=== PATIENT | male | born 1935 | race Caucasian/White ===

== ENCOUNTER 2021-03-12 14:20 | Inpatient (IN) | payer MEDICARE ==
[2021-03-12] MEDS ORDERED: [UNRECOGNIZED DRUG - OTHER] PO (14:35)
[2021-03-12] MEDS ORDERED: VITAMIN C500 M8 PO (14:37)
[2021-03-12] MEDS ORDERED: ASPIRIN ADULT L81 M1 PO (14:38)
[2021-03-12] MEDS ORDERED: ATIVAN1 MG PO (14:39)
[2021-03-12] MEDS ORDERED: Sinemet Cr 25-11 TAB PO (14:42)
[2021-03-12] MEDS ORDERED: STOOL SOFTENER100 M3 PO (14:45)
[2021-03-12] MEDS ORDERED: DIVALPROEX SOD500 M1 PO (14:50)
[2021-03-12] MEDS ORDERED: Depakote500 MG PO (14:52)
[2021-03-12] MEDS ORDERED: EXEL13.31 TD (14:56)
[2021-03-12] MEDS ORDERED: NATURE'S BLEND F1 MG PO (14:58)
[2021-03-12] MEDS ORDERED: FLUDROCORTISON0.1 MG PO (14:58)
[2021-03-12] MEDS ORDERED: LEVOTHYROXINE25 MCG PO (15:00)
[2021-03-12] MEDS ORDERED: METOPROLOL SUCC25 M2 PO (15:01)
[2021-03-12] MEDS ORDERED: POTASSIUM CHLO20 MEQ PO (15:03)
[2021-03-12] MEDS ORDERED: REMERON15 M2 PO (15:04)
[2021-03-12] MEDS ORDERED: VISTARIL25 MG PO (15:05)
[2021-03-12] MEDS ORDERED: WHITE PETROLATUM5 GM T (15:07)
[2021-03-12] MEDS ORDERED: ZINC SULFATE 1566 MG PO (15:08)
[2021-03-12 18:04] VITALS: BP 118/78
[2021-03-12 20:00] VITALS: BP 134/86
[2021-03-12 21:10] LABS: BILIRUBIN Negative (Negative); BLOOD Negative (Negative); CLARITY Cloudy (Clear); COLOR Yellow (Yellow); GLUCOSE Negative (Negative); KETONE Negative (Negative); LEUKO ESTERASE 3+ (Negative); NITRITE Positive (Negative); PH 5.5 (4.5-8.0); SPECIFIC GRAVITY 1.015 (1.001-1.030); UROBILINOGEN 0.2 E.U./dl (0.0-1.0)
[2021-03-12 21:15] LABS: BACTERIA 4+; EPITHELIAL CELLS 0-2; MUCOUS TRACE; RBC 0-2 rbc/hpf (0-2); WBC TNTC wbc/hpf (0-5)
[2021-03-13 06:32] LABS: BASO # 0.1 10*3/uL (0.0-0.1); BASO % 0.9 % (0.0-1.0); EOS # 0.2 10*3/uL (0.0-0.4); EOS % 1.3 % (1.0-4.0); LYMPH % 23.9 % (27.0-41.0); MEAN CELL VOLUME 92.4 fl (80.0-94.0); MEAN CORPUSCULAR HGB 28.4 pg (27.0-31.0); MEAN CORPUSCULAR HGB CONC 30.8 g/dl (33.0-37.0); MONO # 0.9 10*3/uL (0.1-1.0); MONO % 7.1 % (3.0-9.0); NEUT # 8.3 10*3/uL (2.3-7.9); NEUT % 66.4 % (47.0-73.0); PLATELET COUNT AUTOMATED 288 10*3/uL (130-400); RED BLOOD COUNT 4.22 10*6/uL (4.50-5.90); RED CELL DISTRI WIDTH 15.8 % (0-14.5); WHITE BLOOD COUNT 12.4 10*3/uL (4.8-10.8)
[2021-03-13 06:49] LABS: ALBUMIN 2.9 gm/dl (3.1-4.5); BUN 17 mg/dl (7-24); CHLORIDE 108 mmol/L (98-107); CHOLESTEROL 143 mg/dL (<200); CREATININE 0.86 mg/dL (0.70-1.30); POTASSIUM 4.2 mmol/L (3.5-5.1); SGOT/AST 20 IU/L (3-35); SGPT/ALT 30 U/L (12-78); SODIUM 136 mmol/L (136-145); TOTAL PROTEIN 6.7 gm/dL (6.4-8.2); TRIGLYCERIDES 89 mg/dl (<150)
[2021-03-13 06:58] LABS: ALKALINE PHOSPHATASE 70 U/L (45-117); LDL CHOLESTEROL 87 mg/dL (9-159)
[2021-03-13 07:15] VITALS: BP 136/62
[2021-03-13 07:58] LABS: VITAMIN D, 25-HYDROXY 29.8 ng/mL (30-100)
[2021-03-13] MEDS ORDERED: SINEMET 25-1001 EACH PO (15:32)
[2021-03-13 19:47] VITALS: BP 136/62
[2021-03-14 07:56] VITALS: BP 130/60
[2021-03-14 20:00] VITALS: BP 118/68
[2021-03-15 07:57] VITALS: BP 116/68
[2021-03-15 20:00] VITALS: BP 131/59
[2021-03-16 07:17] VITALS: BP 107/69; BP 112/76
[2021-03-16 20:00] VITALS: BP 110/71
[2021-03-17 07:46] VITALS: BP 143/64
[2021-03-17 20:00] VITALS: BP 121/64
[2021-03-18 07:25] VITALS: BP 113/51
[2021-03-18 20:00] VITALS: BP 121/56
[2021-03-19 07:30] VITALS: BP 108/70
[2021-03-19 12:14] LABS: ALBUMIN 2.4 gm/dl (3.1-4.5); ALKALINE PHOSPHATASE 67 U/L (45-117); BUN 14 mg/dl (7-24); CHLORIDE 106 mmol/L (98-107); CREATININE 0.64 mg/dL (0.70-1.30); POTASSIUM 3.6 mmol/L (3.5-5.1); SGOT/AST 17 IU/L (3-35); SGPT/ALT 12 U/L (12-78); SODIUM 139 mmol/L (136-145); TOTAL PROTEIN 5.7 gm/dL (6.4-8.2)
[2021-03-19 20:27] VITALS: BP 126/84
[2021-03-20 08:00] VITALS: BP 129/67
[2021-03-20 19:39] VITALS: BP 139/64
[2021-03-21 07:14] VITALS: BP 131/48
[2021-03-21 20:00] VITALS: BP 110/64
[2021-03-22 07:39] VITALS: BP 108/62
[2021-03-22 19:51] VITALS: BP 122/62
[2021-03-23 07:45] VITALS: BP 153/67
[2021-03-23 20:00] VITALS: BP 114/50
[2021-03-24 07:22] VITALS: BP 134/69
[2021-03-24 19:43] VITALS: BP 127/56
[2021-03-25 07:13] VITALS: BP 150/62
[2021-03-25 13:08] LABS: BASO # 0.1 10*3/uL (0.0-0.1); BASO % 0.8 % (0.0-1.0); EOS # 0.4 10*3/uL (0.0-0.4); HEMATOCRIT 31.7 % (42.0-52.0); LYMPH # 1.9 10*3/uL (1.3-4.4); MEAN CELL VOLUME 95.2 fl (80.0-94.0); MEAN CORPUSCULAR HGB 28.8 pg (27.0-31.0); MEAN CORPUSCULAR HGB CONC 30.3 g/dl (33.0-37.0); MONO # 0.6 10*3/uL (0.1-1.0); MONO % 6.4 % (3.0-9.0); NEUT # 6.5 10*3/uL (2.3-7.9); NEUT % 68.4 % (47.0-73.0); PLATELET COUNT AUTOMATED 271 10*3/uL (130-400); RED BLOOD COUNT 3.33 10*6/uL (4.50-5.90); RED CELL DISTRI WIDTH 16.2 % (0-14.5); WHITE BLOOD COUNT 9.6 10*3/uL (4.8-10.8)
[2021-03-25 13:20] LABS: BUN 12 mg/dl (7-24); CHLORIDE 108 mmol/L (98-107); CREATININE 0.72 mg/dL (0.70-1.30); POTASSIUM 3.9 mmol/L (3.5-5.1); SODIUM 143 mmol/L (136-145)
[2021-03-26 06:45] LABS: BUN 11 mg/dl (7-24); CHLORIDE 109 mmol/L (98-107); CREATININE 0.55 mg/dL (0.70-1.30); SODIUM 142 mmol/L (136-145)
[2021-03-26 08:00] VITALS: BP 142/60
[2021-03-26] MEDS ORDERED: VITAMIN D3125 MC1 PO (09:52)
[2021-03-26] MEDS ORDERED: B121000 MCG/1 IM (10:09)
[2021-03-26] MEDS ORDERED: MEMANTINE HCL10 MG PO (10:09)
[2021-03-26] MEDS ORDERED: QUETIAPINE FUM100 M3 PO (10:09)
[2021-03-26] MEDS ORDERED: Lidoderm 5% Patch T (10:09)
[2021-03-26] MEDS ORDERED: RIVASTIGMINE1 EAC2 T (10:09)
[2021-03-26] MEDS ORDERED: QUETIAPINE FUMA25 MG PO (10:09)
[2021-03-26] MEDS ORDERED: ROZEREM8 MG PO (10:09)
[2021-03-26] MEDS ORDERED: DULOXETINE HCL60 MG PO (10:09)
== END 2021-03-26 10:20 | DRG 885 ==
LOC: 3N 14:20
PROVIDERS: Internal Medicine; Social Worker Clinical; Student in an Organized Health Care Education/Training Program; ADMIT Psychiatry & Neurology Psychiatry; ATTEND Psychiatry & Neurology Psychiatry
DX: F33.3 Major depressive disorder, recurrent, severe with psychotic symptoms (principal); F63.81 Intermittent explosive disorder; N18.9 Chronic kidney disease, unspecified; E27.40 Unspecified adrenocortical insufficiency; C18.9 Malignant neoplasm of colon, unspecified; G45.9 Transient cerebral ischemic attack, unspecified; E44.0 Moderate protein-calorie malnutrition; T83.511A Infection and inflammatory reaction due to indwelling urethral catheter, initial encounter; G30.9 Alzheimer's disease, unspecified; D64.9 Anemia, unspecified; I50.9 Heart failure, unspecified; R33.9 Retention of urine, unspecified; E03.9 Hypothyroidism, unspecified; K21.9 Gastro-esophageal reflux disease without esophagitis; I95.1 Orthostatic hypotension; M47.9 Spondylosis, unspecified; Z20.822 Contact with and (suspected) exposure to COVID-19; G20 Parkinson's disease; J44.9 Chronic obstructive pulmonary disease, unspecified; I25.10 Atherosclerotic heart disease of native coronary artery without angina pectoris; N40.0 Benign prostatic hyperplasia without lower urinary tract symptoms; E78.5 Hyperlipidemia, unspecified; M19.90 Unspecified osteoarthritis, unspecified site; F41.1 Generalized anxiety disorder; S61.411A Laceration without foreign body of right hand, initial encounter; I45.10 Unspecified right bundle-branch block; I44.1 Atrioventricular block, second degree; S91.109A Unspecified open wound of unspecified toe(s) without damage to nail, initial encounter; F02.80 Dementia in other diseases classified elsewhere, unspecified severity, without behavioral disturbance, psychotic disturbance, mood disturbance, and anxiety; E55.9 Vitamin D deficiency, unspecified; R73.9 Hyperglycemia, unspecified; Z95.0 Presence of cardiac pacemaker; X58.XXXA Exposure to other specified factors, initial encounter; Y93.89 Activity, other specified; Y92.89 Other specified places as the place of occurrence of the external cause; Y99.8 Other external cause status